=== PATIENT | female | born 1950 | race Caucasian/White ===

== ENCOUNTER 2016-08-05 18:03 | Emergency (ER) | payer OTHER, BC ==
[~2016-08-05] VITALS: Ht 165.1 cm; Wt 74.6 kg
[~2016-08-05 18:03] MED LIST: ACIPHEX20 MG PO; Ativan PO; Flexeril PO; Imitrex PO; OxyCODONE PO; Phenergan PO; REQUIP2 MG PO; RESTORIL15 MG PO; Slow Fe PO; Tenormin PO; [UNRECOGNIZED DRUG - OTHER] PR
[2016-08-05] MEDS ORDERED: NAPROSYN500 MG PO (20:05)
[2016-08-05 20:29] VITALS: BP 121/71
== END 2016-08-05 20:30 | disposition home or self-care (01) ==
LOC: EME 18:03
DX: M79.662 Pain in left lower leg (principal); R60.0 Localized edema; F17.200 Nicotine dependence, unspecified, uncomplicated
CPT/HCPCS: 93971; 99281; 99284